=== PATIENT | male | born 1955 | race Caucasian/White ===

== ENCOUNTER 2017-12-28 20:56 | Emergency (ER) | payer MEDICAID ==
[~2017-12-28] VITALS: Ht 172.7 cm; Wt 75.0 kg
[~2017-12-28 20:56] MED LIST: NO HOME MEDS
[2017-12-28] MEDS ORDERED: HYDROcodone/acetaminophen 10/325mg tab PO ONE (21:30)
== END 2017-12-29 00:40 | disposition home or self-care (01) ==
LOC: ER 20:57
DX: S43.004A Unspecified dislocation of right shoulder joint, initial encounter (principal); W21.06XA Struck by volleyball, initial encounter; Y93.68 Activity, volleyball (beach) (court); Y92.89 Other specified places as the place of occurrence of the external cause; Y99.8 Other external cause status
CPT/HCPCS: 73030; 99284

== ENCOUNTER 2019-04-07 09:15 | Emergency (ER) | payer MEDICAID ==
[~2019-04-07] VITALS: Ht 172.7 cm; Wt 77.3 kg
--- NOTE | 2019-04-07 09:23 | NUR ---
PT NOTED TO BE TACHY 130-140 IN TRIAGE PRIOR TO BEING ROOMED. PT STATES HE HAS BEEN DX WITH IRRG HERT RATE. RIOS PCT WILL GET EKG IN ROOM
--- NOTE | 2019-04-07 09:25 | NUR ---
CC/O TO ABD PAIN FROM FLANK PAIN
[2019-04-07 09:57] LABS: CLARITY,URINE SLIGHTLY CLOUDY (Clear); COLOR,URINE YELLOW (Yellow); GLUCOSE, URINE NEGATIVE (Neg); KETONES,URINE TRACE mg/dl (Neg); LEUKOCYTE ESTERASE ,URINE NEGATIVE (Neg); NITRITES, URINE NEGATIVE (Neg); OCCULT BLOOD,URINE LARGE (Neg); PROTEIN,URINE TRACE mg/dl (Neg); UROBILINOGEN,URINE 0.2 E.U/dL (0.2-1.0)
[2019-04-07 10:16] LABS: BASOPHILS % (AUTO) 0.8 % (0-1); EOSINOPHILS # (AUTO) 0.2 X10'3 (0-0.9); EOSINOPHILS % (AUTO) 2.7 % (0-6); HEMATOCRIT 45.2 % (42.0-52.0); HEMOGLOBIN 15.5 g/dl (14.0-17.9); LYMPHOCYTES # (AUTO) 2.3 X10'3 (1.1-4.8); LYMPHOCYTES % (AUTO) 36.7 % (21-51); MEAN CORPUSCULAR HEMOGLOBIN 30.6 PG (27.0-31.0); MEAN CORPUSCULAR HGB CONC 34.3 g/dL (33.0-36.5); MEAN CORPUSCULAR VOLUME 89.3 FL (78-98); MEAN PLATELET VOLUME 9.5 FL (7.4-10.4); MONOCYTES # (AUTO) 0.7 X10'3 (0-0.9); MONOCYTES % (AUTO) 10.9 % (2-12); NEUTROPHILS % (AUTO) 48.9 % (42-75); PLATELET COUNT 192 X10'3 (140-440); RED BLOOD COUNT 5.06 X10'6 (4.70-6.10); RED CELL DISTRIBUTION WIDTH 13.6 % (11.5-14.5); WHITE BLOOD COUNT 6.2 X10'3 (4.5-11.0)
[2019-04-07 10:19] LABS: UA COLLECTION TYPE CLN CATCH MIDSTREAM
[2019-04-07 10:20] LABS: BACTERIA,URINE FEW /HPF (Neg); MUCUS STRANDS FEW /LPF (Neg); RBC,URINE 50-100 /HPF (0-2); SQUAMOUS EPITHELIAL CELL,UR MODERATE /LPF (FEW)
[2019-04-07 10:24] LABS: ALANINE AMINOTRANSFERASE 25 U/L (12-78); ALBUMIN 3.8 G/DL (3.4-5.0); ALKALINE PHOSPHATASE 68 IU/L (46-116); ANION GAP 8 (8-16); ASPARTATE AMINO TRANSFERASE 19 U/L (10-37); BILIRUBIN,TOTAL 0.5 MG/DL (0.1-1.0); BLOOD UREA NITROGEN 20 MG/DL (7-18); BUN/CREATININE RATIO 17.1 (5.4-32.0); CALCIUM 9.1 MG/DL (8.5-10.1); CHLORIDE 106 MMOL/L (99-107); CREATININE 1.17 MG/DL (0.60-1.10); GLUCOSE 92 MG/DL (70-104); LIPASE 143 U/L (73-393); POTASSIUM 3.6 MMOL/L (3.5-5.1); SODIUM 142 MMOL/L (135-145); TOTAL CARBON DIOXIDE 27.7 MMOL/L (24-32); TOTAL PROTEIN 7.8 G/DL (6.4-8.2); eGFR 63 ML/MIN
[2019-04-07] MEDS ORDERED: normal saline 1000ML IV soln IVB ONE (10:25)
[2019-04-07] MEDS ORDERED: morphine 4 MG/ML inj SYRINge IV ONE ×2 (10:25→11:00)
[2019-04-07] MEDS ORDERED: ondansetron/PF 4mg/2ml inj IV ONE (10:25)
[2019-04-07] MEDS ORDERED: LORazepam 2 mg/ml vial IV ONE (11:00)
--- NOTE | 2019-04-07 11:42 | NUR ---
PT BACK FROM CT. PATIENT NO LONGER WRAITHING IN PAIN, AR REPORTS SOME PAIN REMAINS BUT FEELS MUCH BETTER. PT DROWSY AND SLEEPING ON SIDE.
[2019-04-07] MEDS ORDERED: CEPH-572 PO (12:18)
[2019-04-07] MEDS ORDERED: IBUP-1986 PO (12:18)
[2019-04-07] MEDS ORDERED: HYDR-4353 PO (12:18)
[2019-04-07] MEDS ORDERED: FLO0.4C PO (12:18)
[2019-04-07 12:20] LABS: URINE AMPHETAMINE SCREEN POSITIVE (Neg); URINE BARBITUATE SCREEN NEGATIVE (Neg); URINE BENZODIAZEPINES SCREEN NEGATIVE (Neg); URINE CANNABINOID SCREEN POSITIVE (Neg); URINE COCAINE SCREEN NEGATIVE (Neg); URINE METHADONE SCREEN NEGATIVE (Neg); URINE OPIATE SCREEN POSITIVE (Neg); URINE PHENCYCLIDINE SCREEN NEGATIVE (Neg)
[2019-04-07 13:04] VITALS: BP 135/82
== END 2019-04-07 13:06 | disposition home or self-care (01) ==
LOC: ER 09:16
DX: N20.0 Calculus of kidney (principal); R82.71 Bacteriuria; R11.2 Nausea with vomiting, unspecified; Z98.890 Other specified postprocedural states
CPT/HCPCS: 36415; 74176; 80053; 80305; 81001; 83690; 84484; 85025; 85610; 87077; 87088; 87186; 93005; 96361; 96374; 96375; 96376; 99284; J2060; J2270; J2405; J7030

== ENCOUNTER 2020-11-26 01:46 | Inpatient (IN) | payer MEDICAID ==
[~2020-11-26] VITALS: Ht 172.7 cm; Wt 74.6 kg
[2020-11-26] VITALS (17 sets, daily range): BP systolic 133–157; BP diastolic 70–99
[~2020-11-26 01:46] MED LIST changes: +IBUP-1986 PO
[2020-11-26] MEDS ORDERED: CefTRIAXone 2gm/D5W 50ml BAG 50 ML IV ONE (02:40)
[2020-11-26] MEDS ORDERED: vancomycin/NS 1 GM ADD-VANTAGE 250 ML IV ONE (02:40)
[2020-11-26] MEDS ORDERED: potassium Cl 20 mEq SR tablet PO PRN ×2 (03:00)
[2020-11-26] MEDS ORDERED: acetaminophen 325mg tablet PO PRN ×3 (03:00→16:00)
[2020-11-26] MEDS ORDERED: magnesium 4gm in 100ml NS 100 ML IV PRN (03:00)
[2020-11-26] MEDS ORDERED: potassium Cl 40MEQ/1/2NS 520ml 520 ML IV PRN ×2 (03:00)
[2020-11-26] MEDS ORDERED: HYDROcodone/acetaminophen 5mg/325mg tablet PO PRN (03:00)
[2020-11-26] MEDS ORDERED: magnesium 2GM in 50ml NS 50 ML IV PRN (03:00)
[2020-11-26] MEDS ORDERED: magnesium Cl slow-release 64mg tablet PO PRN (03:00)
[2020-11-26] MEDS ORDERED: ondansetron/PF 4mg/2ml inj IV PRN ×3 (03:00→16:00)
[2020-11-26] MEDS ORDERED: morphine 2 MG/ML inj. syringe IV PRN ×3 (03:00→15:00)
[2020-11-26] MEDS ORDERED: docusate sod 100mg capsule PO PRN (03:00)
[2020-11-26 03:12] LABS: BASOPHILS % (AUTO) 0.4 % (0-1); EOSINOPHILS # (AUTO) 0.2 X10'3 (0-0.9); EOSINOPHILS % (AUTO) 1.8 % (0-6); HEMOGLOBIN 13.4 g/dl (14.0-17.9); LYMPHOCYTES # (AUTO) 1.5 X10'3 (1.1-4.8); LYMPHOCYTES % (AUTO) 16.6 % (21-51); MEAN CORPUSCULAR HEMOGLOBIN 30.2 PG (27.0-31.0); MEAN CORPUSCULAR HGB CONC 34.3 g/dL (33.0-36.5); MEAN CORPUSCULAR VOLUME 87.9 FL (78-98); MEAN PLATELET VOLUME 8.1 FL (7.4-10.4); MONOCYTES # (AUTO) 1.1 X10'3 (0-0.9); MONOCYTES % (AUTO) 11.6 % (2-12); NEUTROPHILS # (AUTO) 6.5 X10'3 (1.8-7.7); NEUTROPHILS % (AUTO) 69.6 % (42-75); PLATELET COUNT 207 X10'3 (140-440); RED BLOOD COUNT 4.44 X10'6 (4.70-6.10); RED CELL DISTRIBUTION WIDTH 13.5 % (11.5-14.5); WHITE BLOOD COUNT 9.3 X10'3 (4.5-11.0)
[2020-11-26 03:14] LABS: ALANINE AMINOTRANSFERASE 26 U/L (12-78); ALBUMIN 3.6 G/DL (3.4-5.0); ALBUMIN/GLOBULIN RATIO 1.1 (1.1-1.5); ALKALINE PHOSPHATASE 83 IU/L (46-116); ANION GAP 9 (8-16); ASPARTATE AMINO TRANSFERASE 25 U/L (10-37); BILIRUBIN,TOTAL 0.5 MG/DL (0.1-1.0); BLOOD UREA NITROGEN 20 MG/DL (7-18); CHLORIDE 105 MMOL/L (99-107); CREATININE 1.11 MG/DL (0.60-1.10); GLUCOSE 111 MG/DL (70-104); POTASSIUM 3.9 MMOL/L (3.5-5.1); SODIUM 139 MMOL/L (135-145); TOTAL CARBON DIOXIDE 24.7 MMOL/L (24-32); eGFR 67 ML/MIN
[2020-11-26 03:21] LABS: CALCIUM 8.6 MG/DL (8.5-10.1)
[2020-11-26] MEDS: normal saline 1000ml 1,000 ML IV SCH ×3 (03:34→23:00)
--- NOTE | 2020-11-26 03:58 | NUR ---
pt transfered over to a hospital bed
[2020-11-26] MEDS: K and/or MAG REPLACEMENT MC SCH ×2 (07:36→19:53)
[2020-11-26] MEDS: heparin, porcine 5000 units/ml vial SQ SCH ×2 (07:43→19:57)
--- NOTE | 2020-11-26 09:50 | NUR ---
PT IS UP OUT OF BED AND AMBULATED TO THE BATHROOM WITH STEADY GAIT.
--- NOTE | 2020-11-26 11:14 | NUR ---
BRENNAN HARRISON AT BEDSIDE
[2020-11-26] MEDS ORDERED: BUPIVAcaine/PF 2.5mg/ml (0.25%) 10ml vial ONE (12:58)
[2020-11-26] MEDS ORDERED: famotidine 20mg tablet PO ONE (13:35)
[2020-11-26] MEDS ORDERED: ringers solution, lacted 1,000 ML IV SCH ×2 (13:35→15:00)
[2020-11-26] MEDS ORDERED: BUPIVAcaine/PF 2.5 mg/ml (0.25%) 30ml vial ONE (13:46)
[2020-11-26] MEDS ORDERED: LIDOcaine 1% 30ml preserv. free vial ONE (13:46)
[2020-11-26] MEDS ORDERED: fentaNYL/PF 50MCG/1 ML 2ML syringe ONE (14:21)
[2020-11-26] MEDS ORDERED: midazolam 1 mg/ML 2ml injection ONE (14:21)
[2020-11-26] MEDS ORDERED: morphine 4 MG/ML inj SYRINge IV PRN (15:00)
[2020-11-26] MEDS ORDERED: meperidine/PF 25mg/ml syringe IV PRN ×3 (15:00)
[2020-11-26] MEDS ORDERED: proCHLORperazine 10 MG/2 ml inj IV PRN (15:00)
[2020-11-26] MEDS ORDERED: propofol inj 20 ML IV ONE (15:30)
--- NOTE | 2020-11-26 15:33 | NUR ---
Received from OR via , accompanied by Anesthesiologist DR OJEDA and report given by Anesthesiolgist. AWAKENS TO VOICE. VITALS STABLE. DRESSING DI. YAW PAIN.
[2020-11-26] MEDS: ceFAZolin/D5W- 1GM premix 50 ML IV SCH (16:00)
[2020-11-26] MEDS ORDERED: HYDROmorphone 1 mg/ml syringe IV PRN (16:00)
[2020-11-26] MEDS ORDERED: bisacodyl 10mg suppository rectal RC PRN (16:00)
[2020-11-26] MEDS ORDERED: magnesium hydroxide 30ml (MOM) UD suspension PO PRN (16:00)
[2020-11-26] MEDS ORDERED: HYDROmorphone inj. 0.5 MG/0.5 ML DISP.SYRIN IV PRN (16:00)
[2020-11-26] MEDS ORDERED: diphenhydrAMINE 25mg capsule PO PRN ×2 (16:00)
[2020-11-26] MEDS ORDERED: oxyCODONE IR 5mg (immed. release) tablet PO PRN ×2 (16:00)
[2020-11-26] MEDS: vancomycin/NS 1 GM ADD-VANTAGE 250 ML IV SCH (17:00)
--- NOTE | 2020-11-26 18:03 | NUR ---
Report called to receiving nurse. Transferred via WHEEL [employer]ings . Special Issues communicated to receiving nurse. AWAKE AND ORIENTED. VITALS STABLE. DRESSING DI. YAW PAIN. TO SURGICAL RM 345B AT THIS TIME.
--- NOTE | 2020-11-26 18:05 | NUR ---
Patient in room ED 1. I have received report from Tony business partner and had the opportunity to ask questions and assume patient care.
--- NOTE | 2020-11-26 18:15 | NUR ---
Patient arrived to floor via w/c from recovery. A&Ox4 and in no apparent distress at this time. Patient settled into bed and post-op VS to be initiated
[2020-11-26] MEDS: acetaminophen 325mg tablet PO SCH (19:57)
[2020-11-26] MEDS ORDERED: vancomycin/NS 1 GM ADD-VANTAGE 250 ML IV SCH (20:00)
[2020-11-26] MEDS: sennosides 8.6mg tablet PO SCH (20:06)
[2020-11-26] MEDS: gabapentin 300mg capsule PO SCH (20:07)
[2020-11-26] MEDS: HYDROcodone/acetaminophen 10/325mg tab PO PRN (20:07)
[2020-11-26] MEDS: lactobacillus rhamnosus 10,000 MMU CELLS/CAPSULE PO SCH (20:09)
[2020-11-26] MEDS ORDERED: temazepam 15mg capsule PO PRN (21:00)
[2020-11-26] MEDS: potassium cl 20mEq in 1/2 NS 1,000 ML IV SCH (22:40)
[2020-11-27] VITALS: BP 143/70
[2020-11-27] MEDS: ceFAZolin/D5W- 1GM premix 50 ML IV SCH ×3 (00:08→15:26)
[2020-11-27] MEDS: acetaminophen 325mg tablet PO SCH ×4 (02:30→20:00)
[2020-11-27 04:00] VITALS: BP 149/72
[2020-11-27 05:51] LABS: BASOPHILS % (AUTO) 0.5 % (0-1); EOSINOPHILS # (AUTO) 0.1 X10'3 (0-0.9); EOSINOPHILS % (AUTO) 2.3 % (0-6); HEMATOCRIT 37.6 % (42.0-52.0); HEMOGLOBIN 12.6 g/dl (14.0-17.9); LYMPHOCYTES # (AUTO) 1.6 X10'3 (1.1-4.8); LYMPHOCYTES % (AUTO) 27.8 % (21-51); MEAN CORPUSCULAR HEMOGLOBIN 29.9 PG (27.0-31.0); MEAN CORPUSCULAR HGB CONC 33.5 g/dL (33.0-36.5); MEAN PLATELET VOLUME 8.3 FL (7.4-10.4); MONOCYTES # (AUTO) 0.6 X10'3 (0-0.9); MONOCYTES % (AUTO) 9.8 % (2-12); NEUTROPHILS # (AUTO) 3.4 X10'3 (1.8-7.7); NEUTROPHILS % (AUTO) 59.6 % (42-75); PLATELET COUNT 183 X10'3 (140-440); RED BLOOD COUNT 4.23 X10'6 (4.70-6.10); RED CELL DISTRIBUTION WIDTH 13.7 % (11.5-14.5); WHITE BLOOD COUNT 5.7 X10'3 (4.5-11.0)
[2020-11-27] MEDS: vancomycin/NS 1 GM ADD-VANTAGE 250 ML IV SCH ×2 (05:56→17:50)
--- NOTE | 2020-11-27 06:15 | NUR ---
Problems reprioritized. Patient report given, questions answered & plan of care reviewed with Clarice COBURN and nursing anayeli Saleh.
[2020-11-27 06:17] LABS: ALANINE AMINOTRANSFERASE 19 U/L (12-78); ALBUMIN 2.7 G/DL (3.4-5.0); ALBUMIN/GLOBULIN RATIO 0.8 (1.1-1.5); ALKALINE PHOSPHATASE 70 IU/L (46-116); ANION GAP 7 (8-16); ASPARTATE AMINO TRANSFERASE 17 U/L (10-37); BILIRUBIN,TOTAL 0.4 MG/DL (0.1-1.0); BLOOD UREA NITROGEN 12 MG/DL (7-18); CALCIUM 7.8 MG/DL (8.5-10.1); CHLORIDE 109 MMOL/L (99-107); GLUCOSE 90 MG/DL (70-104); POTASSIUM 4.2 MMOL/L (3.5-5.1); SODIUM 142 MMOL/L (135-145); TOTAL CARBON DIOXIDE 25.8 MMOL/L (24-32); TOTAL PROTEIN 6.3 G/DL (6.4-8.2); eGFR 75 ML/MIN
--- NOTE | 2020-11-27 06:54 | NUR ---
Patient in room [facility] 345. I have received report from ALMAS Sotomayor and had the opportunity to ask questions and assume patient care.
[2020-11-27] MEDS: gabapentin 300mg capsule PO SCH ×3 (07:39→20:32)
[2020-11-27] MEDS: lactobacillus rhamnosus 10,000 MMU CELLS/CAPSULE PO SCH ×2 (07:39→20:32)
[2020-11-27] MEDS: heparin, porcine 5000 units/ml vial SQ SCH ×2 (07:43→20:00)
[2020-11-27 08:00] VITALS: BP 127/70
[2020-11-27] MEDS: K and/or MAG REPLACEMENT MC SCH ×2 (08:00→20:36)
[2020-11-27] MEDS: potassium cl 20mEq in 1/2 NS 1,000 ML IV SCH ×3 (08:00→17:42)
[2020-11-27] MEDS: CefTRIAXone/D5W-Rocephin 1gm 50 ML IV SCH (08:00)
[2020-11-27] MEDS: normal saline 1000ml 1,000 ML IV SCH ×2 (09:00→19:00)
[2020-11-27 10:40] VITALS: BP 154/73
[2020-11-27 11:00] VITALS: BP 154/73
[2020-11-27] MEDS: HYDROcodone/acetaminophen 10/325mg tab PO PRN ×2 (12:55→20:33)
[2020-11-27] MEDS ORDERED: VANCOMYCIN LEVEL IV ONE (16:30)
--- NOTE | 2020-11-27 17:07 | NUR ---
PAGER ID: [phone] MESSAGE: [facility]/Surg [id number]. Pt: Abbe. Rm:545-B. Pt c/o difficulty swallowing for a while. can he get orders for a swallow eval? diet changed to [facility] soft. thanks
[2020-11-27 18:00] VITALS: BP 160/84
--- NOTE | 2020-11-27 18:51 | NUR ---
Problems reprioritized. Patient report given, questions answered & plan of care reviewed with ALMAS Stone.
[2020-11-27] MEDS: sennosides 8.6mg tablet PO SCH (20:32)
[2020-11-28] VITALS: BP 148/81
[2020-11-28] MEDS: ceFAZolin/D5W- 1GM premix 50 ML IV SCH ×2 (00:33→08:00)
[2020-11-28] MEDS: potassium cl 20mEq in 1/2 NS 1,000 ML IV SCH ×2 (00:39→08:00)
[2020-11-28] MEDS: acetaminophen 325mg tablet PO SCH ×2 (02:00→08:01)
--- NOTE | 2020-11-28 02:00 | NUR ---
Pt has refused to have his Tylenol this shift thus far. Ynes had been given. Addendum: 11/28/20 at 0227 by Bertha Lyman RN Amended: Links added.
[2020-11-28] MEDS: normal saline 1000ml 1,000 ML IV SCH (05:00)
[2020-11-28] MEDS: vancomycin/NS 1 GM ADD-VANTAGE 250 ML IV SCH (05:08)
--- NOTE | 2020-11-28 06:26 | NUR ---
Problems reprioritized. Patient report given, questions answered & plan of care reviewed with Stacy COBURN. Addendum: 11/28/20 at 0626 by Bertha Lyman RN Amended: Links added.
[2020-11-28 06:32] LABS: BASOPHILS % (AUTO) 0.7 % (0-1); EOSINOPHILS # (AUTO) 0.2 X10'3 (0-0.9); EOSINOPHILS % (AUTO) 2.9 % (0-6); HEMATOCRIT 39.7 % (42.0-52.0); HEMOGLOBIN 13.4 g/dl (14.0-17.9); LYMPHOCYTES # (AUTO) 1.5 X10'3 (1.1-4.8); LYMPHOCYTES % (AUTO) 23.1 % (21-51); MEAN CORPUSCULAR HEMOGLOBIN 29.9 PG (27.0-31.0); MEAN CORPUSCULAR HGB CONC 33.6 g/dL (33.0-36.5); MEAN CORPUSCULAR VOLUME 88.8 FL (78-98); MEAN PLATELET VOLUME 8.5 FL (7.4-10.4); MONOCYTES # (AUTO) 0.7 X10'3 (0-0.9); MONOCYTES % (AUTO) 11.2 % (2-12); NEUTROPHILS # (AUTO) 3.9 X10'3 (1.8-7.7); NEUTROPHILS % (AUTO) 62.1 % (42-75); PLATELET COUNT 196 X10'3 (140-440); RED BLOOD COUNT 4.47 X10'6 (4.70-6.10); RED CELL DISTRIBUTION WIDTH 13.7 % (11.5-14.5); WHITE BLOOD COUNT 6.3 X10'3 (4.5-11.0)
[2020-11-28 06:42] LABS: ALANINE AMINOTRANSFERASE 21 U/L (12-78); ALBUMIN 2.9 G/DL (3.4-5.0); ALBUMIN/GLOBULIN RATIO 0.8 (1.1-1.5); ALKALINE PHOSPHATASE 72 IU/L (46-116); ANION GAP 6 (8-16); ASPARTATE AMINO TRANSFERASE 19 U/L (10-37); BILIRUBIN,TOTAL 0.3 MG/DL (0.1-1.0); BLOOD UREA NITROGEN 8 MG/DL (7-18); CALCIUM 8.2 MG/DL (8.5-10.1); CHLORIDE 108 MMOL/L (99-107); CREATININE 0.89 MG/DL (0.60-1.10); GLUCOSE 90 MG/DL (70-104); MAGNESIUM 2.1 MG/DL (1.5-2.4); POTASSIUM 4.2 MMOL/L (3.5-5.1); SODIUM 140 MMOL/L (135-145); TOTAL CARBON DIOXIDE 25.8 MMOL/L (24-32); TOTAL PROTEIN 6.7 G/DL (6.4-8.2); eGFR 86 ML/MIN
[2020-11-28 06:58] VITALS: BP 123/77
[2020-11-28] MEDS: CefTRIAXone/D5W-Rocephin 1gm 50 ML IV SCH (07:57)
[2020-11-28] MEDS: K and/or MAG REPLACEMENT MC SCH (08:00)
[2020-11-28] MEDS: lactobacillus rhamnosus 10,000 MMU CELLS/CAPSULE PO SCH (08:00)
[2020-11-28] MEDS: gabapentin 300mg capsule PO SCH ×2 (08:00→12:45)
[2020-11-28] MEDS: heparin, porcine 5000 units/ml vial SQ SCH (08:02)
[2020-11-28] MEDS ORDERED: linezolid 600mg tablet PO SCH (10:00)
--- NOTE | 2020-11-28 10:28 | NUR ---
Dr. Sharma and MD Walsh rounded on pt. Pt. drain removed and new dressing applied. IV antibiotics DC'd and oral Zyvox ordered. Both MD oked discharge. MD Walsh requested f/u jony within a week.
--- NOTE | 2020-11-28 10:44 | NUR ---
PAGER ID: [phone] MESSAGE: Umer Mcadams 345B HR irregular and apical 47 BPM. Pt. states he has had an irr. HR recently and has an upcoming appointment with a parking lot spotter, perhaps Dr. Bhatia, but pt. isn't sure. Do you want EKG? Stacy [id number]
--- NOTE | 2020-11-28 11:11 | NUR ---
PAGER ID: [phone] MESSAGE: Umer Mcadams 013B EKG done. Do you want me to bring it to you? Stacy [phone]
[2020-11-28 11:12] VITALS: BP 148/81
[2020-11-28] MEDS ORDERED: LACT1CAP26 PO (12:37)
[2020-11-28] MEDS ORDERED: LINE600T14 PO (12:37)
[2020-11-28] MEDS ORDERED: HYDR-3965 PO (12:37)
--- NOTE | 2020-11-28 12:41 | NUR ---
PAGER ID: [phone] MESSAGE: Samson Mcadams. 345B Pt. is waiting to be discharged and would like to leave but no orders. Called [facility] - medication Zyvox has been approved by insurance. Nico and Zachary alford DC already. Stacy [id number]
--- NOTE | 2020-11-28 13:00 | NUR ---
Reviewed discharge paperwork with pt. Discussed new medications, possible ASE, preferred pharmacy location. Pt. was provided with written education on medications and had ample opportunities to ask questions. IV DC'd, cannula intact, no s/sx bleeding, pressure bandage applied. Pt. knows to f/u with his PCP, Zachary, and Dr. Walsh. Contact information provided and pt. knows to call first thing. He is also planning on seeing a tobacco stripper and already has an appoint to see Sriram per pt. for his low HR. VSS at discharge. Discussed wound care with pt. and infection control techniques. Pt. verbalizes reason he would need to return to the hospital. His picked him up in a private vehicle to go home.
[2020-11-28] MEDS ORDERED: acetaminophen 325mg tablet PO PRN (16:00)
[2020-11-28] MEDS ORDERED: VANCOmycin 1250MG/NS 250ml Bag 250 ML IV SCH (17:00)
[2020-11-30] MEDS ORDERED: VANCOMYCIN LEVEL IV ONE (04:30)
== END 2020-11-28 13:05 | disposition home or self-care (01) | DRG 952 ==
LOC: ER 01:47 → ED HOLD 02:58 → SUR 3N 18:15
PROVIDERS: ADMIT Internal Medicine; ATTEND Family Medicine
PROC: 0L9700Z Drainage of Right Hand Tendon with Drainage Device, Open Approach (ICD-10-PCS; principal; 2020-11-26 14:16)
DX: L03.011 Cellulitis of right finger (principal); M65.841 Other synovitis and tenosynovitis, right hand; Z20.822 Contact with and (suspected) exposure to COVID-19
CPT/HCPCS: 36415; 71045; 73140; 80053; 80202; 83605; 83735; 84145; 85025; 87040; 87070; 87075; 87077; 87081; 87186; 87635; 92508; 92616; 93005; 99285; A4618; A6449; A7000; G0378; J0690; J0696; J1644; J2001; J2250; J2704; J3010; J3370; J3480; J3490; J7030; J7120

== ENCOUNTER 2021-05-29 02:12 | Emergency (ER) | payer MEDICAID ==
--- NOTE | 2021-05-28 09:39 | NUR ---
Pt back in room for GI lab.
[~2021-05-29] VITALS: Ht 172.7 cm; Wt 72.7 kg
[~2021-05-29 02:12] MED LIST changes: -IBUP-1986 PO; +LACT1CAP26 PO; +LINE600T14 PO; -NO HOME MEDS
[2021-05-29] MEDS ORDERED: glucagon, human recombinant 1mg kit IV ONE (02:45)
[2021-05-29] MEDS ORDERED: LORazepam 2 mg/ml vial IV ONE (02:45)
--- NOTE | 2021-05-29 03:22 | NUR ---
RAC 20G PLACED, MEDS GIVEN-SEE MAR, PATIENT ASLEEP, WILL MONITOR
[2021-05-29] MEDS ORDERED: ondansetron/PF 4mg/2ml inj IV ONE (05:20)
--- NOTE | 2021-05-29 06:44 | NUR ---
patient received in bed, placed in a gown,vital signs rechecked, call light within reach.
[2021-05-29] MEDS ORDERED: fentaNYL/PF 50MCG/1 ML 2ML syringe ONE (08:00)
[2021-05-29] MEDS ORDERED: MIDAZolam 1 MG/ML 5ML VIAL ONE (08:00)
[2021-05-29] MEDS ORDERED: LIDOcaine Viscous 15ml cup ONE (08:01)
[2021-05-29 08:15] VITALS: BP 145/86
[2021-05-29 08:56] VITALS: BP 148/79
[2021-05-29 09:06] VITALS: BP 128/81
[2021-05-29 09:16] VITALS: BP 126/81
[2021-05-29 09:26] VITALS: BP 131/83
[2021-05-29] MEDS ORDERED: PANT-47 PO (09:54)
--- NOTE | 2021-05-29 10:02 | NUR ---
called /krzysztof eta: [id number].
[2021-05-29 10:53] VITALS: BP 130/84
== END 2021-05-29 10:42 | disposition home or self-care (01) ==
LOC: ER 02:12
DX: T18.128A Food in esophagus causing other injury, initial encounter (principal); Z20.822 Contact with and (suspected) exposure to COVID-19; R05 Cough; R11.10 Vomiting, unspecified; Z98.890 Other specified postprocedural states; Z72.89 Other problems related to lifestyle; Z79.899 Other long term (current) drug therapy; X58.XXXA Exposure to other specified factors, initial encounter; Y93.89 Activity, other specified; Y92.89 Other specified places as the place of occurrence of the external cause; Y99.8 Other external cause status
CPT/HCPCS: 43247; 87635; 96374; 96375; 99152; 99285; C9803; J1610; J2060; J2250; J2405; J3010; J7040; Z7512; A4620

== ENCOUNTER 2022-02-12 23:08 | Emergency (ER) | payer MEDICAID ==
[~2022-02-12 23:08] MED LIST changes: +PANT-47 PO
== END 2022-02-13 01:19 | disposition left against medical advice (07) ==
LOC: ER 23:10
DX: T18.128A Food in esophagus causing other injury, initial encounter (principal); Z53.21 Procedure and treatment not carried out due to patient leaving prior to being seen by health care provider; X58.XXXA Exposure to other specified factors, initial encounter; Y93.89 Activity, other specified; Y92.89 Other specified places as the place of occurrence of the external cause; Y99.8 Other external cause status
CPT/HCPCS: 99283

== ENCOUNTER 2023-07-20 20:44 | Emergency (ER) | payer BC, MEDICAID ==
[~2023-07-20] VITALS: Ht 172.7 cm; Wt 73.6 kg
[2023-07-20 20:57] VITALS: BP 199/106; PULSE 52; RESP 16; TEMP 98.5; O2SAT 97
--- NOTE | 2023-07-20 21:05 | NUR ---
RACHEL [place] #
[2023-07-20 21:34] LABS: BASOPHILS # (AUTO) 0.1 X10'3 (0-0.2); BASOPHILS % (AUTO) 0.8 % (0-1); EOSINOPHILS # (AUTO) 0.2 X10'3 (0-0.9); EOSINOPHILS % (AUTO) 2.1 % (0-6); HEMATOCRIT 42.6 % (42.0-52.0); HEMOGLOBIN 14.6 g/dl (14.0-17.9); LYMPHOCYTES # (AUTO) 1.9 X10'3 (1.1-4.8); LYMPHOCYTES % (AUTO) 23.1 % (21-51); MEAN CORPUSCULAR HEMOGLOBIN 30.6 PG (27.0-31.0); MEAN CORPUSCULAR HGB CONC 34.3 g/dL (33.0-36.5); MEAN CORPUSCULAR VOLUME 89.2 FL (78-98); MEAN PLATELET VOLUME 8.4 FL (7.4-10.4); MONOCYTES # (AUTO) 0.8 X10'3 (0-0.9); MONOCYTES % (AUTO) 9.5 % (2-12); NEUTROPHILS # (AUTO) 5.2 X10'3 (1.8-7.7); NEUTROPHILS % (AUTO) 64.5 % (42-75); PLATELET COUNT 224 X10'3 (140-440); RED BLOOD COUNT 4.78 X10'6 (4.70-6.10); RED CELL DISTRIBUTION WIDTH 13.7 % (11.5-14.5)
[2023-07-20 21:47] LABS: ALANINE AMINOTRANSFERASE 18 U/L (12-78); ALBUMIN/GLOBULIN RATIO 1.2 (1.1-1.5); ALKALINE PHOSPHATASE 79 IU/L (46-116); ANION GAP 9 (8-16); ASPARTATE AMINO TRANSFERASE 21 U/L (10-37); BILIRUBIN,TOTAL 0.6 MG/DL (0.1-1.0); BLOOD UREA NITROGEN 17 MG/DL (7-18); BUN/CREATININE RATIO 12.1 (10.0-20.0); CALCIUM 8.9 MG/DL (8.5-10.1); CHLORIDE 103 MMOL/L (99-107); GLUCOSE 107 MG/DL (70-104); LIPASE 22 U/L (16-77); POTASSIUM 3.9 MMOL/L (3.5-5.1); SODIUM 140 MMOL/L (135-145); TOTAL CARBON DIOXIDE 28.1 MMOL/L (24-32); TOTAL PROTEIN 7.4 G/DL (6.4-8.2); eCRCL 50 ML/MIN; eGFR 51 ML/MIN
== END 2023-07-21 01:20 | disposition left against medical advice (07) ==
LOC: ER 20:47
DX: R10.9 Unspecified abdominal pain (principal); Z53.21 Procedure and treatment not carried out due to patient leaving prior to being seen by health care provider
CPT/HCPCS: 36415; 80053; 83690; 85025; 99281

== ENCOUNTER 2024-09-18 15:52 | Emergency (ER) | payer BC, MEDICAID ==
[~2024-09-18] VITALS: Ht 172.7 cm; Wt 72.8 kg
[2024-09-18 15:58] VITALS: BP 134/90; PULSE 105; RESP 16; TEMP 98.7; O2SAT 98
== END 2024-09-18 17:05 | disposition left against medical advice (07) ==
LOC: ER 15:52
DX: S10.96XA Insect bite of unspecified part of neck, initial encounter (principal); Z53.21 Procedure and treatment not carried out due to patient leaving prior to being seen by health care provider; W57.XXXA Bitten or stung by nonvenomous insect and other nonvenomous arthropods, initial encounter; Y93.89 Activity, other specified; Y92.89 Other specified places as the place of occurrence of the external cause; Y99.8 Other external cause status

== ENCOUNTER 2024-11-23 08:11 | Outpatient (CLI) | payer BC, MEDICAID | END 2024-11-23 23:59 | disposition home or self-care (01) | LOC: RAD 08:11 | DX: R13.13 Dysphagia, pharyngeal phase (principal); K21.9 Gastro-esophageal reflux disease without esophagitis; R13.11 Dysphagia, oral phase | CPT/HCPCS: 74230 ==